=== PATIENT | male | born 1985 | race Caucasian/White ===

== ENCOUNTER 2019-08-25 19:08 | Emergency (ER) | payer MEDICAID ==
[~2019-08-25] VITALS: Ht 185.4 cm; Wt 105.7 kg
[2019-08-25 19:12] VITALS: Ht 185.4 cm; Wt 105.7 kg
[2019-08-26 00:55] VITALS: BP 148/88
== END 2019-08-26 00:55 | disposition home or self-care (01) ==
LOC: ED 19:08
DX: N48.30 Priapism, unspecified (principal); F17.210 Nicotine dependence, cigarettes, uncomplicated
CPT/HCPCS: J2001; J2370; J3105; J7040